=== PATIENT | male | born 1990 | race Caucasian/White ===

== ENCOUNTER 2020-09-30 21:29 | Emergency (ER) | payer OTHER ==
[~2020-09-30 21:29] MED LIST: AMOX TR-K CLV1 EAC4 PO; BACTROBAN CREAM15 GM TOP; IBUPROFEN600 MG PO; VENTOLIN HFA 66.7 GM INH; ZANTAC 150 MG150 MG PO
== END 2020-09-30 22:39 | disposition left against medical advice (07) ==
LOC: ER1 21:29
DX: Z53.21 Procedure and treatment not carried out due to patient leaving prior to being seen by health care provider (principal)

== ENCOUNTER 2021-06-04 17:53 | Emergency (ER) | payer OTHER ==
[2021-06-04] MEDS ORDERED: FLOXIN 0.3% OTIC5 ML EARLF (19:37)
[2021-06-04] MEDS ORDERED: IBUPROFEN600 MG PO (19:37)
== END 2021-06-04 19:51 | disposition home or self-care (01) ==
LOC: ER1 17:53
DX: H72.92 Unspecified perforation of tympanic membrane, left ear (principal)
CPT/HCPCS: 99282